=== PATIENT | female | born 1950 | race African-American/Black ===

== ENCOUNTER 2016-10-24 05:50 | Emergency (ER) | payer OTHER ==
[~2016-10-24] VITALS: Ht 165.1 cm; Wt 77.1 kg
--- NOTE | ~2016-10-24 | EKG ---
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
[2016-10-24] MEDS ORDERED: PROZAC10 MG PO (06:18)
[2016-10-24 06:27] LABS: ABSOLUTE NEUTROPHILS 4.4 thou/uL (1.4-8.2); BASOPHILS 0.4 % (0.0-2.0); EOSINOPHILS 2.8 % (0.0-3.0); HEMATOCRIT 42.2 % (37.0-47.0); HEMOGLOBIN 14.2 gm/dL (12.0-15.0); LYMPHOCYTES 22.2 % (24.0-44.0); MANUAL DIFF NO; MCH 30.1 pg (26.0-34.0); MCHC 33.8 g/dL (28.0-37.0); MCV 89.2 fL (80.0-100.0); MONOCYTES 6.2 % (1.0-8.0); PLATELET COUNT 240 thou/uL (150-400); POLYS 68.4 % (36.0-66.0); RBC 4.73 mil/uL (4.20-5.00); RDW 13.2 % (10.5-14.5); WBC 6.4 thou/uL (4.0-11.0)
[2016-10-24 06:36] LABS: ANION GAP 4 mmol/L (7-16); BUN 18 mg/dL (7-18); CALCIUM 9.2 mg/dL (8.5-10.1); CHLORIDE 108 mmol/L (98-107); CO2 28 mmol/L (21-32); GLUCOSE 122 mg/dL (74-106); POTASSIUM 4.1 mmol/L (3.5-5.1); SODIUM 140 mmol/L (136-145)
[2016-10-24 06:40] LABS: ALBUMIN 3.4 g/dL (3.4-5.0); DIRECT BILIRUBIN 0.1 mg/dL (<0.1-0.3); TOTAL BILIRUBIN 0.5 mg/dL (<0.1-1.0); TOTAL PROTEIN 6.6 g/dL (6.4-8.2)
[2016-10-24 06:44] LABS: TROPONIN-I < 0.04 ng/mL (<0.04-0.07)
[2016-10-24 08:01] LABS: URINE BILIRUBIN NEGATIVE (Negative); URINE BLOOD NEGATIVE (Negative); URINE COLOR YELLOW; URINE GLUCOSE-RANDOM* NEGATIVE (Negative); URINE KETONES NEGATIVE (Negative); URINE LEUKOCYTES-REFLEX 1+ (Negative); URINE PROTEIN (DIPSTICK) NEGATIVE (Negative); URINE SPECIFIC GRAVITY 1.015 (1.003-1.035); URINE UROBILINOGEN 0.2 E.U./dl (0.2-1.0)
[2016-10-24 08:41] LABS: CASTS None Seen /LPF (None Seen); CRYSTALS None Seen /LPF (None Seen); SQUAMOUS 4-10 Moderate /LPF (0-3); URINE RBC None Seen /HPF (0-2); URINE WBC-REFLEX 6-15 Few /HPF (0-5)
[2016-10-24] MEDS ORDERED: KEFLEX500 MG PO (09:02)
[2016-10-24 09:21] VITALS: BP 123/77
== END 2016-10-24 09:04 | disposition home or self-care (01) ==
LOC: ER 05:50
PROVIDERS: Emergency Medicine
DX: N39.0 Urinary tract infection, site not specified (principal); Z88.8 Allergy status to other drugs, medicaments and biological substances

== ENCOUNTER → 2017-08-14 | Outpatient (CLI) | payer OTHER ==
[~2017-08-14] MED LIST: KEFLEX500 MG PO; PROZAC10 MG PO
== END ==
LOC: RAD 07-31 00:53
DX: Z12.31 Encounter for screening mammogram for malignant neoplasm of breast (principal)

== ENCOUNTER → 2018-09-26 | Outpatient (CLI) | payer OTHER | LOC: RAD 11:05 | DX: Z12.31 Encounter for screening mammogram for malignant neoplasm of breast (principal) ==

== ENCOUNTER → 2019-11-11 | Outpatient (CLI) | payer OTHER | LOC: RAD 07-08 12:36 | PROVIDERS: ATTEND Family Medicine | DX: Z12.31 Encounter for screening mammogram for malignant neoplasm of breast (principal); Z78.0 Asymptomatic menopausal state ==

== ENCOUNTER 2020-06-19 08:50 | Emergency (ER) | payer OTHER ==
[~2020-06-19] VITALS: Ht 165.1 cm; Wt 86.2 kg
[2020-06-19 09:27] LABS: ABSOLUTE NEUTROPHILS 3.9 thou/uL (1.4-8.2); BASOPHILS 0.4 % (0.0-2.0); EOSINOPHILS 3.2 % (0.0-3.0); HEMATOCRIT 44.8 % (37.0-47.0); HEMOGLOBIN 14.9 gm/dL (12.0-15.0); LYMPHOCYTES 26.2 % (24.0-44.0); MCH 29.3 pg (26.0-34.0); MCHC 33.2 g/dL (28.0-37.0); MCV 88.2 fL (80.0-100.0); MONOCYTES 6.6 % (1.0-8.0); PLATELET COUNT 237 thou/uL (150-400); POLYS 63.6 % (36.0-66.0); RBC 5.07 mil/uL (4.20-5.00); RDW 13.2 % (10.5-14.5); WBC 6.1 thou/uL (4.0-11.0)
[2020-06-19 09:29] LABS: URINE BILIRUBIN NEGATIVE (Negative); URINE BLOOD NEGATIVE (Negative); URINE COLOR YELLOW; URINE GLUCOSE-RANDOM* NEGATIVE (Negative); URINE KETONES NEGATIVE (Negative); URINE NITRITE-REFLEX NEGATIVE (Negative); URINE PROTEIN (DIPSTICK) NEGATIVE (Negative); URINE SPECIFIC GRAVITY 1.015 (1.005-1.035); URINE UROBILINOGEN 0.2 E.U./dl (0.2-1.0)
[2020-06-19 09:30] LABS: ANION GAP 10 mmol/L (7-16); BUN 14 mg/dL (7-18); CALCIUM 9.9 mg/dL (8.5-10.1); CHLORIDE 103 mmol/L (98-107); CO2 26 mmol/L (21-32); GLUCOSE 125 mg/dL (74-106); SODIUM 139 mmol/L (136-145)
[2020-06-19 09:30] LABS: URINE CLARITY HAZY; URINE LEUKOCYTES-REFLEX 3+ (Negative)
[2020-06-19 09:40] LABS: ALBUMIN 3.9 g/dL (3.4-5.0); DIRECT BILIRUBIN 0.1 mg/dL (<0.1-0.2); SGOT 27 U/L (15-37); SGPT 46 U/L (30-65); TOTAL BILIRUBIN 0.6 mg/dL (0.2-1.0); TOTAL PROTEIN 7.6 g/dL (6.4-8.2); TROPONIN-I <0.06 ng/mL (<0.06)
--- NOTE | 2020-06-19 10:07 | EKG ---
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
[2020-06-19 10:11] LABS: BACTERIA-REFLEX >30 Many /HPF (None Seen); CASTS None Seen /LPF (None Seen); SQUAMOUS >10 Many /LPF (0-3); URINE RBC 0-2 Rare /HPF (0-2)
[2020-06-19 10:12] LABS: CRYSTALS None Seen /LPF (None Seen)
[2020-06-19 11:41] VITALS: BP 145/77
[2020-06-19] MEDS ORDERED: REGLAN 5 MG TAB5 MG PO (12:39)
== END 2020-06-19 13:31 | disposition home or self-care (01) ==
LOC: ER 08:50
PROVIDERS: Emergency Medicine
DX: G44.209 Tension-type headache, unspecified, not intractable (principal); Z79.899 Other long term (current) drug therapy; Z88.8 Allergy status to other drugs, medicaments and biological substances

== ENCOUNTER → 2020-11-30 | Outpatient (CLI) | payer OTHER ==
[~2020-11-30] MED LIST changes: +REGLAN 5 MG TAB5 MG PO
== END ==
LOC: BC 10:33 → PAIN 13:53
PROVIDERS: ATTEND Obstetrics & Gynecology
DX: Z12.31 Encounter for screening mammogram for malignant neoplasm of breast (principal)